=== PATIENT | male | born 1960 | race Caucasian/White ===

== ENCOUNTER 2017-12-26 01:39 | Outpatient (CLI) | payer BC, SELFPAY ==
[2017-12-26 11:36] LABS: HCT 40.7 % (40.0-50.0); HGB 13.8 g/dL (13.5-17.5); Mean Corp. HGB Concentration 33.9 g/dL (32.0-36.0); Mean Corpuscular Hemoglobin 32.6 pg (27.0-33.0); Mean Corpuscular Volume 96.2 fL (80-95); Mean Platelet Volume 10.3 fL (8.0-11.0); Platelet Count 221 x1000/uL (130-400); RBC 4.23 m/cumm (4.50-6.00); RBC Distribution Width 12.9 % (11.8-14.1); White Blood Cell Count 5.95 k/cumm (4.4-10.8)
[2017-12-26 11:54] LABS: Prothrombin Time 9.9 sec (9.3-10.8)
[2017-12-26 12:12] LABS: ALT 49 U/L (12-78); AST 24 U/L (15-37); Albumin 3.9 g/dL (3.4-5.0); Alkaline Phosphatase 93 U/L (46-116); Amylase 55 U/L (25-115); Anion Gap 11.9 mmol/L (3-11); BUN 20 mg/dL (7-18); Bilirubin, Total 0.5 mg/dL (0.2-1.0); CO2 25.1 mmol/L (21.0-32.0); CREATININE 0.95 mg/dL (0.70-1.30); Calcium 9.5 mg/dL (8.5-10.1); Chloride 104 mmol/L (98-107); Glucose 109 mg/dL (70-100); Lipase 164 U/L (73-393); Potassium 4.2 mmol/L (3.5-5.1); Sodium 141 mmol/L (136-145); Total Protein 7.3 g/dL (6.4-8.2)
[2017-12-26 16:01] LABS: GGT 115 U/L (15-85)
== END 2017-12-26 01:59 ==
PROVIDERS: PCP Emergency Medicine; Visit Provider Emergency Medicine
DX: R17 Unspecified jaundice (principal)
CPT/HCPCS: 36415; 80053; 83690; 85027; 82150; 82977; 83735; 85610

== ENCOUNTER 2021-03-27 13:22 | Outpatient (REF) | payer OTHER, SELFPAY ==
[2021-03-28 06:00] LABS: COVID-19 RT-PCR UVMMC Result Positive (Negative)
== END 2021-03-27 13:23 | disposition home or self-care (01) ==
LOC: LBN 13:22
PROVIDERS: PCP Emergency Medicine; Visit Provider Nurse Practitioner Family
DX: Z20.822 Contact with and (suspected) exposure to COVID-19 (principal); J06.9 Acute upper respiratory infection, unspecified
CPT/HCPCS: U0003

== ENCOUNTER 2022-09-13 00:45 | Outpatient (CLI) | payer OTHER, SELFPAY ==
[2022-09-13] MEDS: Gadoterate meglumine 20 ML SYRINGE IVP (10:33)
[2022-09-13] MEDS: Normal Saline Flush 10 ML SYR IVP (10:34)
--- NOTE | 2022-09-13 11:00 | DI.MRI_ITS ---
Exam(s) MR IAC BRAIN WO/W EXAM: MR IAC BRAIN WO/W CLINICAL HISTORY: AUTH# [id number] HEARING LOSS RT EAR, Z01.89. TECHNIQUE: Multiplanar multisequence MRI of the brain and internal auditory canals was performed. CONTRAST MATERIAL: IV Contrast: 20 mL of Magnevist contrast administered. COMPARISON: No exams were available for comparison FINDINGS: VENTRICLES AND EXTRA AXIAL SPACES: Normal in size and morphology for the patient's age. HEMORRHAGE: None. CEREBRAL PARENCHYMA: Minimal high signal foci in the white matter. No focus of restricted diffusion t o suggest acute infarct. No space-occupying lesion identified. MIDLINE SHIFT: None. BRAINSTEM/CEREBELLUM: Normal. CALVARIUM: Normal. ENHANCEMENT: No suspicious enhancement identified. VISUALIZED PARANASAL SINUSES/ MASTOIDS: Small amount of fluid seen in the inferior right mastoid air cells. ORBITS: Unremarkable. IAC/CP ANGLE: The internal auditory canals are within normal limits. The cerebellar pontine angles ar e unremarkable. No enhancing lesions are seen. Visualized portions of the cranial nerves appear withi n normal limits. OTHER FINDINGS: Partially included on the field of view is a lobulated circumscribed ovoid lesion britany suring 13 by 26 by 21 millimeters located within the parapharyngeal space on the left, deep to the m edial pterygoid muscle. It does not show significant contrast enhancement. IMPRESSION: Unremarkable MRI of the brain and internal auditory canals. Mass seen in the left parapharyngeal space partially included in the field of view. Dedicated MRI of this area recommended for further evaluation. Unexpected findings DATA REPOSITORY:
== END 2022-09-13 01:05 ==
PROVIDERS: Visit Provider Otolaryngology
DX: Z01.89 Encounter for other specified special examinations (principal); J39.0 Retropharyngeal and parapharyngeal abscess
CPT/HCPCS: 70553

== ENCOUNTER → 2023-01-16 03:40 | Outpatient (CLI) | payer OTHER, SELFPAY ==
--- NOTE | 2023-01-16 | DI.US_ITS ---
Exam(s) US SOFT TISSUE EXTREMITY EXAM: US SOFT TISSUE EXTREMITY CLINICAL HISTORY: HI AUTH# [id number] PAIN OF LEFT KNEE M25.562 ? BAKERS CYST SWELLING/PAIN. TECHNIQUE: Ultrasound was performed using standard protocol. COMPARISON: US SOFT TISSUE UPPER LOWER EXT US from 05/29/2010 FINDINGS: There is no evidence of [place] cyst in the popliteal fossa. Popliteal vein within the popliteal fossa is patent. Some fluid is noted anterior to the knee which is most probably within the suprapatellar bursa indica ting joint effusion. IMPRESSION: There is a left knee joint effusion. No [place] cyst. Recommend follow-up MRI of the for added sensit ivity and specificity. DATA REPOSITORY:
--- NOTE | 2023-01-16 08:46 | DI.RAD_ITS ---
Exam(s) XR KNEE LT 3V AP,LAT,AGNIESZKA EXAM: XR KNEE LT 3V AP,LAT,AGNIESZKA CLINICAL HISTORY: [place] AUTH#[id number] PAIN LEFT KNEE M25.562 ? DJD HX TRAUMA. TECHNIQUE: 2D digital imaging was performed. COMPARISON: No exams were available for comparison FINDINGS: Four views No evidence of fracture. Small joint effusion noted. There are tricompartmental osteoarthritic dege nerative changes, most severe in the medial patellofemoral compartments. Moderate degenerative sweeney es in the lateral compartment. Bone density normal. No osseous lesions. Marginal osteophytes noted . IMPRESSION: Degenerative changes. Small joint effusion noted. DATA REPOSITORY: RADIATION DOSE DELIVERED:
== END ==
PROVIDERS: Visit Provider Internal Medicine
DX: M25.562 Pain in left knee (principal); M25.462 Effusion, left knee
CPT/HCPCS: 73562; 76881

== ENCOUNTER 2024-06-14 02:04 | Outpatient (CLI) | payer OTHER, SELFPAY ==
[2024-06-14 11:52] LABS: HCT 40.4 % (40.0-50.0); HGB 13.5 g/dL (13.5-17.5); MCH 32.1 pg (27.0-33.0); MCHC 33.4 % (32.0-36.0); MCV 96 fL (80-95); MPV 9.4 fL (8.0-11.0); Platelet Count 248 10^3/uL (130-400); RDW 13.1 % (11.8-14.1); RDW-SD 46.5 fL; WBC 6.94 10^3/uL (4.4-10.8)
[2024-06-14 12:03] LABS: Anion Gap 10.9 mmol/L (3-11); BUN 20 mg/dL (7-18); CO2 25.1 mmol/L (21.0-32.0); CREATININE 1.2 mg/dL (0.70-1.30); Calcium 9.8 mg/dL (8.5-10.1); Chloride 106 mmol/L (98-107); Estimated GFR 67.11 (mL/min/1.73m2); Glucose 118 mg/dL (74-106); Potassium 4.5 mmol/L (3.5-5.1); Sodium 142 mmol/L (136-145)
== END 2024-06-14 02:05 | disposition home or self-care (01) ==
PROVIDERS: Visit Provider Student in an Organized Health Care Education/Training Program
DX: M17.12 Unilateral primary osteoarthritis, left knee (principal); Z01.818 Encounter for other preprocedural examination
CPT/HCPCS: 36415; 80048; 85027

== ENCOUNTER 2024-06-14 15:48 | Outpatient (CLI) | payer OTHER, MEDICARE, SELFPAY ==
--- NOTE | 2024-06-14 10:00 | DI.RAD_ITS ---
Exam(s) XR KNEE LT 1V XR STANDING ALIGNMENT EXAM: XR STANDING ALIGNMENT CLINICAL HISTORY: left knee pain. TECHNIQUE: 2D digital imaging was performed. Standing AP views were performed from the pelvis throu gh the ankles. COMPARISON: CR XR KNEE LT 1V from 06/14/2024 FINDINGS: BONES: No acute fracture is present. No bony destructive lesion is seen. Leg length discrepancy: The right femoral head projects approximately 1 cm superior to the left. JOINTS: Knees: Severe narrowing of the medial femoral tibial joint space of the left knee with periar ticular spurring. The right knee joint spaces are maintained. The ankle joints are unremarkable. The hip joints are unremarkable. SOFT TISSUE: Mild swelling in both lower legs. IMPRESSION: Severe degenerative changes of the medial femoral tibial joint of the left knee. Approximate 1 centimeter overall leg length discrepancy. DATA REPOSITORY: RADIATION DOSE DELIVERED:
== END 2024-06-14 15:49 | disposition home or self-care (01) ==
LOC: DIORS 15:48
PROVIDERS: Visit Provider Physician Assistant
DX: M17.12 Unilateral primary osteoarthritis, left knee (principal)
CPT/HCPCS: 73560; 77073

== ENCOUNTER 2024-06-29 07:15 | Day surgery (SDC) | payer OTHER, SELFPAY ==
[2024-06-29] VITALS (16 sets, daily range): BP systolic 120–169; BP diastolic 60–98; PULSE 61–84; RESP 16–25; TEMP 36.5–36.7; O2SAT 77–99; BMI 37.8
--- NOTE | 2024-06-29 07:20 | PDOC.DSDIS_ITS ---
Date of service: 06/29/24 Discharge Plan Disposition Patient Disposition: Home Condition: Good Discharge Details Reason For Visit: left knee DJD Attending Provider: Adelso Woods Primary Care Provider: [facility] Home Meds and New Rx's Prescriptions: New celecoxib [Celebrex] 200 mg capsule 200 mg PO BID PRNQty: 60 0RF Rx Instructions: Take one tablet twice daily for pain and inflammation aspirin 81 mg tablet,delayed release (DR/EC) 81 mg PO BID 30 Days Qty: 60 0RF acetaminophen 500 mg tablet 1,000 mg PO Q8H PRN Qty: 90 0RF Rx Instructions: Take two tablets up to every 8 hours as needed for pain pantoprazole 40 mg tablet,delayed release (DR/EC) 40 mg PO DAILY Qty: 14 0RF dexamethasone 4 mg tablet 4 mg PO DAILY Qty: 2 0RF Rx Instructions: Take one tablet once daily for two days docusate sodium [Colace] 100 mg capsule 100 mg PO BID Qty: 30 0RF gabapentin 300 mg capsule 300 mg PO QHS Qty: 14 0RF Rx Instructions: Take one tablet at bedtime oxycodone 5 mg tablet 5 mg PO Q4H PRNQty: 18 0RF Rx Instructions: Take one tablet up to every 4 hours as needed for severe postoperative pain Continued albuterol sulfate 90 mcg/actuation HFA aerosol inhaler 2 puff inhalation Q6H PRN (Reason: shortness of breath or wheezing) Qty: 8.5 0RF (DME) Aerochamber MV Spacer See Rx Instructions .Route Qty: 1 0RF Rx Instructions: As directed metoprolol succinate [Toprol XL] 50 mg tablet extended release 24 hr 50 mg PO HS Qty: 90 4RF rosuvastatin 20 mg tablet 10 mg PO DAILY amlodipine 5 mg tablet 5 mg PO HS losartan 100 mg tablet 100 mg PO HS Discontinued aspirin 81 MG tablet,chewable 81 mg PO DAILY Qty: 90 indomethacin 50 mg capsule 50 mg PO TID PRN Rx Instructions: one tab tid x 4 days for gout Discharge Instructions Additional Instructions: Total Knee Discharge Instructions Activity: The most important activity is to walk and to work on gentle motion (both flexion and extension). You should try to take short walks a few times a day. It is important that when resting you work on keeping the knee straight. Avoid putting a pillow behind the knee as this will encourage flexion. Work on range of motion exercises as provided by Physical Therapy. - Start outpatient physical therapy within 2 weeks. - You should wear the MARGIE hose on both legs for 2 weeks. You may remove these at night. You may also use any compression sock in place of the MARGIE hose. - Utilize [employer] to review exercises, see videos on exercises and obtain basic information pertaining to your surgery and your recovery. Dressing: Remove the George wrap by 2 days after your surgery and put on the MARGIE stocking given to you from the hospital. Keep the surgical dressing (underneath the GEORGE wrap) in place for at least one week. After the first week it may be removed and replaced with light gauze and tape or nothing. The wound and dressing may get wet after 3 days but avoid soaking the dressing or otherwise it will need to be changed. Many people prefer covering the dressing with cling wrap (saran wrap) to minimize it from getting soaked. If it gets wet, just pat dry. If it starts to peel off then it will need to be changed. Medications: - You should take Tylenol and anti-inflammatory Celebrex as your primary pain control medications. If the Celebrex is too expensive or not covered, please call the office for another alternative (Advil/Ibuprofen or Naproxen/Aleve) - You have been prescribed a stronger pain medication Oxycodone for breakthrough pain, take as needed as prescribed. - You have also been prescribed a stomach acid reduction agent Pantoprozole to help reduce stomach acid and reflux. - You have been prescribed Gabapentin to take at night for restlessness and nerve pain. - You will be taking Aspirin 81mg twice a day for DVT prevention unless instructed otherwise. - You have also been prescribed Decadron to take to control post-operative nausea and pain. You will start this tomorrow. - If you have constipation you should take Colace (which was prescribed) or Miralax (which is available [id number]). It takes most people 3-4 days to have a bowel movement. Follow-up: 2 weeks If you have any acute concerns or questions, please do not hesitate to contact the office at [phone]. You may contact Dr. Woods with any questions after hours through the hospital at [phone] or on his cell phone at [phone]. Referrals: Adelso Woods MD [ [facility] STAFF PHYSICIAN] - Equipment/Supplies: Walker Activity:: Elevate Remove Dressings/Wound Care:: Do Not Remove Shower/Bathe:: Cover Diet:: As Tolerated Discharge Orders Discharge Orders: Discharge Order (Routine); Ordered 06/29/24 Ordered By: Keerthi Good
[2024-06-29] MEDS: Celecoxib 200 MG CAP 400 MG PO (07:48)
[2024-06-29] MEDS: Gabapentin 300 MG CAP PO (07:48)
[2024-06-29] MEDS: Acetaminophen 500 MG TAB 1000 MG PO (07:49)
[2024-06-29] MEDS: Lactated Ringers 1,000 ML 80 ML IV ×2 (08:14→10:54)
--- NOTE | 2024-06-29 08:40 | W.ANESPRE ---
General Info Date of Service Date Performed: 06/29/24 Height: 5 ft 9 in Weight: 116.1 kg Body Mass Index (BMI): 37.8 Surgical Procedure: Operation Date: 06/29/24 09:40 Proposed Procedure Side Surgeon p Knee Total Arthroplasty Left Adelso Woods MD Meds Allergies and Home Medications Allergies Allergy/AdvReac Type Severity Reaction Status Date / Time atorvastatin AdvReac Intermediate joint pain Verified 06/29/24 07:47 and anxiety hydrochlorothiazide AdvReac Intermediate DIZZINESS Verified 06/29/24 07:47 lisinopril AdvReac Intermediate COUGH Verified 06/29/24 07:47 Home Medication ?Medication ?Instructions ?Recorded metoprolol succinate 50 mg 50 mg PO HS #90 tabs 07/21/20 tablet,extended release 24 hr (Toprol XL) albuterol sulfate 90 mcg/actuation 2 puff inhalation Q6H PRN 03/22/24 aerosol inhaler shortness of breath or wheezing #8.5 grams inhalational spacing device #1 ea 03/22/24 (Aerochamber MV spacer) rosuvastatin 20 mg tablet 10 mg PO DAILY 06/14/24 amlodipine 5 mg tablet 5 mg PO HS 06/25/24 losartan 100 mg tablet 100 mg PO HS 06/25/24 acetaminophen 500 mg tablet 1,000 mg (2 x 500 mg) PO Q8H PRN 06/29/24 pain #90 tabs aspirin 81 mg tablet,delayed 81 mg PO BID 30 days #60 tabs 06/29/24 release celecoxib 200 mg capsule (Celebrex) 200 mg PO BID PRN #60 caps 06/29/24 dexamethasone 4 mg tablet 4 mg PO DAILY #2 tabs 06/29/24 docusate sodium 100 mg capsule 100 mg PO BID #30 caps 06/29/24 (Colace) gabapentin 300 mg capsule 300 mg PO QHS #14 caps 06/29/24 oxycodone 5 mg tablet 5 mg PO Q4H PRN #18 tabs 06/29/24 pantoprazole 40 mg tablet,delayed 40 mg PO DAILY #14 tabs 06/29/24 release Current Visit Medications: Current Medications Generic Name Dose Route Start Last Admin Trade Name Freq PRN Reason Stop Dose Admin Acetaminophen 1,000 mg 06/29/24 06:00 06/29/24 07:49 Acetaminophen 500 Mg Tab PO 06/29/24 23:59 1,000 mg PREOP SAMI Administration Celecoxib 400 mg 06/29/24 06:00 06/29/24 07:48 Celecoxib 200 Mg Cap PO 06/29/24 23:59 400 mg PREOP SAMI Administration Droperidol 0.625 mg 06/29/24 08:05 Droperidol 2.5 Mg/Ml Vial IVP 07/29/24 08:04 DIRECTED PRN Ephedrine Sulfate 0 mg 06/29/24 08:05 Ephedrine 25 Mg/5 Ml Syringe IVP 07/29/24 08:04 DIRECTED PRN Fentanyl 0 mcg 06/29/24 08:05 Fentanyl 100 Mcg/2 Ml Vial IVP 07/29/24 08:04 DIRECTED PRN Gabapentin 300 mg 06/29/24 06:00 06/29/24 07:48 Gabapentin 300 Mg Cap PO 06/29/24 23:59 300 mg PREOP SAMI Administration Hydromorphone HCl 0.5 mg 06/29/24 07:19 Hydromorphone 2 Mg/Ml Syr IVP 07/29/24 07:18 Q2H PRN PRN Hydromorphone HCl 0 mg 06/29/24 08:05 Hydromorphone 2 Mg/Ml Syr IVP 07/29/24 08:04 DIRECTED PRN Ringer's Solution 1,000 mls @ 80 mls/hr 06/29/24 06:00 06/29/24 08:14 IV 06/29/24 23:59 80 mls/hr INFUSION SAMI Administration Cefazolin Sodium/Dextrose 2 gm in 50 mls @ 100 mls/hr 06/29/24 06:00 Ancef Duplex IVPB 06/29/24 23:59 PREOP SAMI Tranexamic Acid/Sodium Chloride 1,000 mg in 100 mls @ 600 mls/hr 06/29/24 06:00 IVPB 06/29/24 23:59 PREOP SAMI Cefazolin Sodium/Dextrose 1 gm in 50 mls @ 100 mls/hr 06/29/24 08:00 Ancef Duplex IVPB 06/30/24 00:29 Q8H SAMI IV Miscellaneous Supplies 1 each 06/29/24 06:00 Iv Access IV 06/29/24 23:59 DIRECTED SAMI Naloxone HCl 0 mg 06/29/24 08:05 Naloxone 0.4 Mg/Ml Vial IVP 07/29/24 08:04 PRN PRN Oxycodone HCl 0 mg 06/29/24 07:19 Oxycodone 5 Mg Tab PO 07/29/24 07:18 Q3H PRN PRN Pain Sodium Chloride 0 ml 06/29/24 06:00 Normal Saline Flush 10 Ml Syr IV 06/29/24 23:59 PRN PRN Sodium Chloride 0 ml 06/29/24 06:00 Normal Saline 10 Ml Vial IJ 06/29/24 23:59 DIRECTED PRN Sterile Water 0 ml 06/29/24 06:00 Water,Injection,Sterile 10 Ml Vial IJ 06/29/24 23:59 DIRECTED PRN PFSH Active Problems Active Problems: Problem Status Onset Code History of total left knee replacement Acute 06/29/24 Z96.652 Sleep apnea Acute G47.30 Tubular adenoma of colon Acute D12.6 Takotsubo cardiomyopathy Acute 05/03/15 I51.81 Hyperlipidemia Acute E78.5 Benign hypertension Acute I10 Medical History Medical History Lipoma neck; removed History of tobacco use stopped 35 years Gout (08/25/12) Alcohol abuse (12/11/17) 3 glasses of red wine a day Medical History Comments:: 06/29/24 pt drank 4 glasses red wine 06/28/24. Uses CPAP. Surgical History Surgical History (Updated 06/29/24 @ 08:36 by Olga Atwood RN) History of cardiac catheterization 2016-no stents-discharged from their care History of colonoscopy History of arthroscopy of knee Left Tobacco Smoking/Tobacco Use Status: Former Tobacco Use Passive smoking exposure: No Alcohol Alcohol Intake: current Alcohol intake frequency: 3 or more drinks per day Substance Use Substance use: Never Substance use type: does not use Vital Signs and Lab Results Vital Signs Most Recent Vital Signs in EMR: Most Recent Vital Signs Temp Pulse Resp BP Pulse Ox 36.7 C 84 20 161/98 H 98 06/29/24 07:37 06/29/24 07:37 06/29/24 07:37 06/29/24 07:37 06/29/24 07:37 Lab Results Blood Type / Crossmatch: No Data to Display Complete Blood Count: White Blood Count 6.94 10^3/uL (4.4-10.8) 06/14/24 11:42 Red Blood Count 4.20 10^6/uL (4.36-5.78) L 06/14/24 11:42 Hemoglobin 13.5 g/dL (13.5-17.5) 06/14/24 11:42 Hematocrit 40.4 % (40.0-50.0) 06/14/24 11:42 Platelet Count 248 10^3/uL (130-400) 06/14/24 11:42 Complete Metabolic Panel: Sodium 142 mmol/L (136-145) 06/14/24 11:42 Potassium 4.5 mmol/L (3.5-5.1) 06/14/24 11:42 Chloride 106 mmol/L (98-107) 06/14/24 11:42 Carbon Dioxide 25.1 mmol/L (21.0-32.0) 06/14/24 11:42 BUN 20 mg/dL (7-18) H 06/14/24 11:42 Creatinine 1.2 mg/dL (0.70-1.30) 06/14/24 11:42 Est GFR (CKD-EPI 2020) 67.11 (mL/min/1.73m2) 06/14/24 11:42 Calcium 9.8 mg/dL (8.5-10.1) 06/14/24 11:42 Glucose 118 mg/dL (74-106) H 06/14/24 11:42 Liver Function Panel: No Data to Display Coagulation Panel: No Data to Display Cardiac Panel: No Data to Display Arterial Blood Gas: No Data to Display Venous Blood Gas: No Data to Display Pancreas Panel: No Data to Display Thyroid Panel: No Data to Display Infectious Disease: No Data to Display Blood Cultures: No Data to Display Toxicology Panel: No Data to Display Anesthesia Assessment and Plan Anesthesia History Personal History: No History of Anesthesia Complications Family History: No Family History of Anesthesia Complications Exercise Tolerance Exercise Tolerance: Metabolic Equivalents>4 Pertinent Negatives Pertinent Negatives: No Symptoms of GERD Cardiac & Pulmonary Exam Cardiac Exam: Normal S1/S2 Heart Sounds Pulmonary Exam: Clear Bilateral Breath Sounds Implantable Cardiac Device Does patient have a Pacemaker or an ICD?: No Airway Exam Known Difficult Airway: No Mallampati Class: 3 Mouth Opening: Normal (> 3cm) Thyromental Distance: Greater than 3 cm Neck Range of Motion: Full ROM Neck Circumference: Thick Teeth Condition: Normal Dentition ASA Classification ASA Score: ASA 2 Emergency Case?: No NPO Status NPO Status: NPO Clears >2 hours, Solids >8 hours Anesthesia Plan Resuscitation Status: Full Code Anesthesia Technique: Spinal Anesthesia Airway Planned: Natural Airway Pain Management: Surgeon and patient request nerve block Monitors Used: Standard Monitors
--- NOTE | 2024-06-29 09:13 | W.PM.OP ---
Operative Note Operative Note PRE-OP DIAGNOSIS: Left Knee Osteoarthritis POST-OP DIAGNOSIS: same PROCEDURE: Left Total Knee Replacement SURGEON: Adelso Woods SHIPWRIGHT SUPERVISOR: Keerthi Good ANESTHESIA TYPE: Spinal Refer to Anesthesia Record PATHOLOGY: none sent TOURNIQUET TIME: 0 COMPLICATIONS: None Patient was transported to: PACU Patient's condition: stable Implants: 1. Depuy Attune Cementless Cruciate Retaining Femoral Component, Size 7 2. Depuy Attune Cementless Fixed Bearing Tibial Component, Size 7 3. Depuy Attune 7x6mm CR/FB Poly Indications: I have seen Tato in clinic for symptoms of knee arthritis, confirmed with radiographic findings. He has exhausted nonoperative methods and was having significant limitations in daily function and desired better function and less pain. I discussed the technical details of a knee replacement. I explained the risks of the procedure to include, but not limited to, bleeding, infection, pain, stiffness, fracture, damage to nerves and vessels, damage to muscles and tendons, loosening, need for repeat procedure, blood clot and cardiopulmonary demise. Despite these risks, Tato elected to proceed. Findings: There was significant signs of arthritis throughout the knee, most concentrated in the medial compartment. Procedure Description: Tato was greeted in the preoperative holding area where the correct side was identified and marked. The consent was reviewed with the patient and signed. The history and physical was updated. All questions were answered. Preoperative medications were administered: Acetaminophen 1000mg, Celebrex 400mg, and Gabapentin 300mg. An adductor canal block was then administered by the anesthesia team in the DSU. Tato was taken back to the operating room. A spinal anesthestic was then administered. The patient was placed into the supine position on the operating room table. Posts were placed for positioning during the procedure. All bony prominences were well padded. Prophylactic antibiotics in the form of Cefazolin were administered. 1g of Tranxemic Acid was given intravenously within 30 minutes of incision. The left leg was then prepped with Chloraprep and draped in a standard fashion with impervious stockinette. A second prep with Chloraprep was performed prior to application of Iodine impregnated skin protection. A timeout to confirm correct identity, side and site, procedure, allergies, anesthesia, and medical concerns was performed. With the knee in some flexion, a midline incision was made overlying the knee. Full thickness skin flaps were raised once the extensor mechanism was encountered. These were raised medially and laterally. Any bleeding was controlled with electrocautery. Once the extensor mechanism was fully exposed, a medial parapatellar arthrotomy was performed in a flexed position. All bleeding from the arthrotomy and the geniculate arteries was coagulated. A medial subperiosteal peel was performed with electrocautery to the midcoronal plane. Due to the significant varus deformity the entire medial tibial plateau was exposed. The fat pad was removed while keeping the patellar tendon protected. The anterior distal femur synovium was removed for later visualization. The ACL and PCL were resected and the anterior horn of the lateral meniscus was transected. The knee was then flexed with the patella everted. Large osteophytes from the tibia were removed. Large osteophytes from the femur were removed. Using a step drill, and based on preoperative templating, the femoral canal was entered. This was done with a step drill without any difficulty. The intramedullary distal femoral cut guide was inserted, set to a 5 degree valgus cut and 9mm cut thickness. The distal femoral cut guide was then held in position and pinned. With the soft tissues protected, the distal cut was performed. This was passed over a few times to ensure a planar cut. I then turned attention to the tibia. The extramedullary guide was placed onto the leg. The distal aspect was slid medial to adjust for position of center of ankle and stay in line with shaft of the tibia. Approximately 3-5 degrees of posterior slope was kept in the proximal cutting guide. The center of the guide was aligned with the PCL. The stylus was used to assess cut thickness. The medial side, most involved side, was set for a 4-5mm cut off the lowest portion of the medial tibia. This was then held in position and pinned into place with 2 additional pins and a cross pin for stability. The medial and lateral collateral ligaments were protected and the cut was performed. With this completed, it was assessed and noted to be of appropriate dimensions. The guide was removed. A spacer block was inserted and the knee was brought into extension. The 6mm spacer block provided full extension, without hyperextension and with stability of both the medial and lateral collateral ligaments was assessed. The pins from the femur and the tibia were then removed. The distal femur was then sized. The anterior stylus was placed onto the lateral ridge of the anterior femur. This indicated a size 7 femur. The external rotation of the guide was adjusted to 0 degrees to match the epicondylar axis, perpendicular to [place]?s line. The 4-in-1 cutting guide was the placed. The posterior medial femur cut was evaluated and appeared of good thickness. The spacer block was inserted underneath the cutting guide and stability was confirmed in 90 degrees of flexion. An pierre wing was used to confirm appropriate position of the anterior cut to avoid notching. This cutting guide was ensured to be flush on the cut surface and then pinned into place with headed pins. While protecting the soft tissues, quad tendon, and collateral ligaments, the anterior and posterior cuts were performed with a saw. The central two pins were removed and the posterior and anterior chamfers were cut next. The notch-cutting guide was placed. This was pinned to lateralize the femoral component as much as possible while keeping it flush on the cut surface. This was then pinned into position. A reciprocating saw was used to make the notch cut. A rasp smoothed the cut surfaces. The medial and lateral menisci were removed. A trial femoral component was then inserted, impacted down to the cut surfaces, and the lug holes were drilled. A provisional trial tibial component was placed and the knee was brought through range of motion. There was noted to be excellent extension and flexion. There was no significant instability. The patella was tracking without thumbs. A size 6mm polyethylene component provided the best range of motion and stability with less than 2mm gapping with medial and lateral stress and full extension without significant hyperextension. The tibial cut surface was fully exposed. The tibia was then sized as a 7. The tibia had been previously marked during trialing to correspond to the center of the tibial component to help with rotation. The trial was aligned to this hector, approximately rotated to the medial 1/3rd of the tibial tubercle. The trial was pinned into place. The tibia was prepared with a reamer and a keel punch and lug holes. The trial components were removed. The final components were opened on the back table. The periosteal and capsular tissues, especially posteriorly, around the knee were then systematically injected with a periarticular cocktail consisting of 246mg of Ropivacaine, 0.5mg of Epinephrine, 0.08mg of Clonidine, and 30mg of Ketorolac, diluted to 100cc. On the back table, with the implants opened, the cement was mixed. One batch of high viscosity cement was prepared with vacuum assistance. After the cement was ready a small amount was placed on the cut surface of the patella and the patellar button was clamped into position and held. While the cement was hardening, the cementless knee components were placed. Starting with the tibial component, the tibia was subluxed anteriorly and the lug holes of the component were lined up. The tibia was then impacted with an impactor and mallet until the tibial component was in contact with the tibia. The final polyethylene component was inserted. Then, the femoral component was inserted. The lug holes were aligned and the component was impacted into position. The knee was irrigated with Surgiphor Betadine solution. This was allowed to sit in the knee for 3 minutes and then it was irrigated out with saline. The patella was tracking without any assistance and without any rise or subluxation. I did perform a synovectomy around the periphery of the patella and removed any prominent lateral bone with a rongeur. The capsule was then reapproximated with a No. 1 Vicryl at multiple locations. The capsule was finally closed with a No. 2 Stratafix, barbed suture. The second dosing of 1g TXA was started. Deep tissues were then reapproximated with 0 Vicryl and 2-0 Vicryl. The skin was closed with a running 3-0 Monocryl in a subcuticular fashion. This was reinforced with skin glue. A Mepilex silver dressing was applied along with a [id number] MARQUES wrap. A CryoCuff was applied. Tato was transferred to the hospital bed without difficulty an suffering no apparent complication. Tato has a good prognosis. Physical therapy will start today and without restrictions, weight-bearing as tolerated. Aspirin 81mg BID will be used for DVT prophylaxis. Date of Procedure: 06/29/24
[2024-06-29] MEDS: ceFAZolin 2 GM/50 ML BAG IVPB (09:31)
[2024-06-29] MEDS: TRANEXAMIC ACID/SOD. CHL. 1,000 MG/100 ML BAG 600 MG IVPB (09:37)
--- NOTE | 2024-06-29 10:01 | W.ANESNERVE ---
Nerve Block Single Injection Procedure Date and Time Date Performed: 06/29/24 Procedure Start: :09 Location Where Procedure Performed Procedure Location: Operating Room Procedure Stop: :14 Reason Performed: Postoperative Analgesia Requesting Provider: Adelso Woods Timeout Performed Timeout Performed: Yes Monitoring Used ECG, Blood Pressure, SpO2, ETCO2 and See EMR for corresponding vital signs Sterility Sterility: Hand Hygiene, Surgical Cap, Surgical Mask, Sterile Gloves, Sterile Drape/Sheet, Eye Protection and Chlorhexidine Sedation Given During Procedure Sedation Given (Indicate Dose Given): Versed IV Dose:: 2mg IVP Patient Mental Status Patient Mental Status: Sedate with meaningful communication Nerve Block 1st Nerve Block: Laterality: Left Block Type: Adductor Canal Ultrasound Image Saved?: Yes Needle / Catheter Used: 100mm SonoPlex II Local Anesthetic Bolus (Indicate Dose Given): Lidocaine used for local infiltration of skin and Ropivacaine 0.5% Dose:: 0.5%/25cc (125mg) Additives (Indicate Dose Given): Epinephrine to make 1:200,000 (5mcg/ml) Dose:: 125mcg and Decadron Dose:: 10mg PF Ultrasound: Sterile probe cover and gel used Nerve Stimulator: Supplement to Ultrasound use and No twitch or parasthesia noted < 0.5 mA Paresthesia: None Procedure Tolerated: No Complications and Patient tolerated well Procedure Outcome: Successful Performed By: Marshal Malone
--- NOTE | 2024-06-29 11:35 | W.ANESPOSTOP ---
Postoperative Evaluation Date, Time and Location Date Performed: 06/29/24 Time Performed: 11:35 Patient Location: PACU Vital Signs Most Recent Imported Vital Signs: Most Recent Vital Signs Temp Pulse Resp BP Pulse Ox 36.7 C 73 21 155/85 H 98 06/29/24 11:30 06/29/24 11:31 06/29/24 11:31 06/29/24 11:31 06/29/24 11:31 Pain Score Most Recent Pain Score: Most Recent Pain Score Pain Level 0 06/29/24 11:30 Assessment Mental Status: Awake (Alert & Oriented to Patient Baseline) Airway and Respiratory Function: Patent airway with normal (patient baseline) respiratory exam Cardiovascular Function: Hemodynamically Stable Hydration Status: Adequately Hydrated Nausea & Vomiting: No Nausea or Vomiting Pain: Pt. Denies Any Pain Peripheral Nerve Block: Regional nerve block not resolved at time of post operative discharge
--- NOTE | 2024-06-29 13:28 | IN_ITS ---
PT Notes Visit Reasons: left knee DJD Physical Therapy Day Surgery Initial Evaluation Date: 06/29/2024 Referring Doctor: Keerthi Good PT Orders: PT CONSULT: s/p Ortho Surgery Precautions: WBAT left LE, TEDS x 2 weeks after removal of George bandage Patient Profile/Admitting Diagnosis: Patient is 64-year-old male presenting status post elective left TKA under spinal anesthesia on 06/29/2024. Postop uncomplicated PMHX: Sleep apnea, tubular adenoma of colon, Takotsubo cardiomyopathy, hyperlipidemia, benign hypertension, gout, cardiac catheterization Social History/Home Situation: Patient resides in two-story home with 4 steps to enter with left railing and flight of stairs with right railing to bedroom. The last 3 steps on the stairs to the bedroom do not have a railing. Patient independent ambulation without device, independent ADLs. Equipment Owned/DME: FWW, tub seat, crutches Subjective: Pt reports he is not having much pain. Patient reports he has doors on his tub/shower. Patient reports he plans to sleep on the first floor in his recliner Objective: [] General Observation: presented with cryocuff in place to left knee and his present. Mental Status: A + O x 4 , pleasant , cooperative able to follow instructions Pain: 2/10 with ROM ROM: Right Upper Extremity: WNL Left Upper Extremity: WNL Right Lower Extremity: WNL Left Lower Extremity:WFL except knee 5-92 degrees Strength: [] Right Upper Extremity: 5/5 Left Upper Extremity:5/5 Right Lower Extremity:5/5 Left Lower Extremity: able to hold quad without lag for short range SLR, however impaired muscle activation during ambulation and stairs without cues. Sensation:intact. Bed Mobility/Transfers: Supine to sit supervision Sit to stand supervision Stand to sit supervision Bed to chair Supervision with FWW Gait: 150 feet amb with FWW Supervision with cues for sequencing heel strike and knee extension during mid stance LLE. Pt demonstrates knee flexion at mid stance, impaired knee flexion during swing phase with hip hike and vaulting noted. Pt with excessive WB through UE . Stairs: 5 steps with 2 rails CGA with cues for sequencing and knee extension Balance: [] Static Sitting:Normal Dynamic Sitting: good Static Standing: good Dynamic Standing: fair + Special Tests: [] Mobility Limitations Standardized Measure [] [facility] AM-PAC 6 clicks Basic Mobility Inpatient Short Form: [] Raw Score:22 CMS Score: 20.91% Informed Consent/Education: Patient instructed in purpose of PT consult. Packet containing TKA exercise protocol has been given to patient. Education and training on initial set of exercises that can be done at home have been completed with patient. Instructed in stairs with 1 rail CGA and cues for sequencing. Assessment: Patient demonstrates hesitation to perform knee flexion he was educated on benefits and risks of not performing TherEX/range of motion. Patient is fearful of pain. Patient is 64 yo male presents with clinical signs and symptoms consistent with current/admitting diagnoses that have resulted to mobility limitations, gait instability, generalized weakness, and impairment of motor control as demonstrated by the following impairment level findings: 1. Decreased strength to left knee major muscle groups 2. Impaired standing balance 3. Limitation of joint range of motion in left knee Impairments are contributing to the following functional limitations: 1. Inability to safely ambulate without assistive device 2. Increase completion time for mobility ADL performance 3. Increased fall risk 4. difficulty performing stairs alone Patient is assessed as a low complexity based on the following: History: 64-year-old male with impairment level findings, functional limitations, and past medical history as indicated above Examination: Demonstrable impairment in strength, balance, and mobility level with underlying impairments and functional limitations as documented above Presentation: stable Decision Making: low Goals: N/A. Plan of Care/Treatment Plan: N/A. DISCHARGE RECOMMENDATIONS:Home with HEP and Outpatient PT as scheduled TREATMENT CODE/TIME:[id number], [id number] Thank you for the opportunity to participate in the care of this patient. [facility]
== END 2024-06-29 14:12 | disposition home or self-care (01) ==
PROVIDERS: Referring Provider Internal Medicine; Visit Provider Student in an Organized Health Care Education/Training Program
PROC: (CPT 27447; principal; 2024-06-29 09:30)
DX: M17.12 Unilateral primary osteoarthritis, left knee (principal); G89.18 Other acute postprocedural pain; M25.562 Pain in left knee; E78.5 Hyperlipidemia, unspecified; I10 Essential (primary) hypertension; F10.10 Alcohol abuse, uncomplicated
CPT/HCPCS: 27447; 64447; 97161; 97530; C1776; J0171; J0690; J1100; J2003; J2250; J2371; J2401; J2405; J2704; J2795

== ENCOUNTER 2024-07-15 15:03 | Outpatient (CLI) | payer OTHER, SELFPAY ==
--- NOTE | 2024-07-15 10:30 | DI.RAD_ITS ---
Exam(s) XR KNEE LT 1V XR STANDING ALIGNMENT EXAM: XR STANDING ALIGNMENT and XR knee LT 1 V CLINICAL HISTORY: 1ST POST OP S/P L TKA. TECHNIQUE: 2D digital imaging was performed. Five images were obtained. COMPARISON: CR XR STANDING ALIGNMENT from 06/14/2024 CR XR KNEE LT 1V from 06/14/2024 FINDINGS: BONES: The hips are well maintained. Since the prior examination, the patient has undergone a left t otal knee arthroplasty. The orthopedic hardware is in good position. No lucencies are seen in or ab out the orthopedic hardware. The right knee is well maintained. The ankles are well maintained.The right lower extremity is almost 2 cm longer than the left lower extremity. SOFT TISSUE: Normal. IMPRESSION: Interval placement of a left total knee arthroplasty. DATA REPOSITORY: RADIATION DOSE DELIVERED:
== END 2024-07-15 15:04 | disposition home or self-care (01) ==
LOC: DIORS 15:03
PROVIDERS: PCP Internal Medicine; Visit Provider Student in an Organized Health Care Education/Training Program
DX: Z96.652 Presence of left artificial knee joint (principal); Z47.1 Aftercare following joint replacement surgery
CPT/HCPCS: 73560; 77073

== ENCOUNTER 2025-01-16 17:42 | Emergency (ER) | payer OTHER, SELFPAY ==
[2025-01-16 17:45] VITALS: BP 123/81; PULSE 99; RESP 18; TEMP 36.2; O2SAT 94
[2025-01-16 17:56] VITALS: BP 123/81; PULSE 99; RESP 18; TEMP 36.2; O2SAT 94
[2025-01-16] MEDS: Tetracaine 0.5% 4 ML BTL (18:07)
[2025-01-16] MEDS: Fluorescein STRIPS 100/BOX 1 MG (18:08)
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
[2025-01-16] MEDS: Erythromycin Ophth Oint 3.5 GM TUBE OD (18:29)
== END 2025-01-16 18:31 | disposition home or self-care (01) ==
PROVIDERS: Emergency Provider Emergency Medicine; PCP Internal Medicine
DX: H10.021 Other mucopurulent conjunctivitis, right eye; S05.01XA Injury of conjunctiva and corneal abrasion without foreign body, right eye, initial encounter; W22.8XXA Striking against or struck by other objects, initial encounter; Y93.89 Activity, other specified
CPT/HCPCS: 99283 ×2